=== PATIENT | male | born 1985 | race Caucasian/White ===

== ENCOUNTER 2022-01-14 13:28 | Emergency (ER) | payer SELFPAY ==
[2022-01-14 13:39] VITALS: BP 139/78; PULSE 100; TEMP 97.8; BMI 24.3
== END 2022-01-14 14:49 | disposition home or self-care (01) ==
LOC: FER 13:28
DX: L84 Corns and callosities (principal)
CPT/HCPCS: 99282-25

== ENCOUNTER 2023-10-12 11:03 | Emergency (ER) | payer SELFPAY ==
[2023-10-12 13:17] VITALS: BP 131/82; PULSE 100; RESP 16; TEMP 98.8; BMI 26.6
== END 2023-10-12 13:53 | disposition home or self-care (01) ==
LOC: FER 11:03
DX: R42 Dizziness and giddiness (principal); H53.8 Other visual disturbances
CPT/HCPCS: 82962; 93005; 99283-25

== ENCOUNTER 2023-12-19 09:49 | Emergency (ER) | payer SELFPAY ==
[2023-12-19 10:11] VITALS: BP 125/80; PULSE 80; RESP 15; TEMP 98.2; BMI 27.4
[2023-12-19 14:04] LABS: THROAT:GRP A STREP NOT DETECTED (NOTDETECTED)
== END 2023-12-19 10:16 | disposition home or self-care (01) ==
LOC: FER 09:49
DX: J06.9 Acute upper respiratory infection, unspecified (principal); Z20.822 Contact with and (suspected) exposure to COVID-19
CPT/HCPCS: 0241U-QW; 87651; 99283-25

== ENCOUNTER 2024-02-05 10:00 | Emergency (ER) | payer SELFPAY ==
[2024-02-05 10:06] VITALS: BP 132/82; PULSE 88; RESP 18; TEMP 97.9; BMI 25.8
[2024-02-05] MEDS ORDERED: AZITHROMYCIN 500 MG TABLET ONE (10:16)
[2024-02-05] MEDS ORDERED: ALBUTEROL SO4 2.5/IPRATROPIUM 0.5 INH SOL 3 ML VIAL.NEB. NEB ONE (10:16)
[2024-02-05] MEDS: ALBUTEROL SO4 2.5/IPRATROPIUM 0.5 INH SOL 3 ML VIAL.NEB. NEB ONE (10:20)
[2024-02-05] MEDS: AZITHROMYCIN 250 MG TABLET PO ONE (10:33)
== END 2024-02-05 11:10 | disposition home or self-care (01) ==
LOC: FER 10:00
PROC: 3E0F7GC Introduction of Other Therapeutic Substance into Respiratory Tract, Via Natural or Artificial Opening (ICD-10-PCS; principal; 2024-02-05)
DX: R05.9 Cough, unspecified (principal); J40 Bronchitis, not specified as acute or chronic; Z20.822 Contact with and (suspected) exposure to COVID-19
CPT/HCPCS: 0241U-QW; 71046-TC-FY; 99284-25

== ENCOUNTER 2024-04-24 08:14 | Emergency (ER) | payer SELFPAY ==
[2024-04-24 08:29] VITALS: BP 121/66; PULSE 85; RESP 20; TEMP 98.2; BMI 25.8
[2024-04-24 10:38] LABS: THROAT:GRP A STREP NOT DETECTED (NOTDETECTED)
== END 2024-04-24 09:16 | disposition home or self-care (01) ==
LOC: FER 08:14
DX: J02.9 Acute pharyngitis, unspecified (principal); R05.9 Cough, unspecified; Z20.822 Contact with and (suspected) exposure to COVID-19
CPT/HCPCS: 0241U-QW; 87651; 99283-25